=== PATIENT | female | born 1975 | race Caucasian/White ===

== ENCOUNTER 2018-10-06 09:19 | Emergency (ER) | payer SELFPAY ==
[2018-10-06 10:50] LABS: Absolute Lymphocytes (CBC) 1.1 K/uL (0.7-4.9); Basophils % 0.7 % (0-1.3); Eosinophils % 1.1 % (0-4.4); Hematocrit 43.1 % (36.0-45.0); Lymphocytes % 18.6 % (15.3-44.8); Monocytes % 9.8 % (3.3-12.3); RBC Red Blood Cell Count 5.15 M/uL (3.86-4.86)
[2018-10-06 10:56] LABS: Albumin 3.8 g/dL (3.4-5.0); Bilirubin Direct 0.1 mg/dL (0-0.2); Bilirubin Total 0.3 mg/dL (0.2-1.0); Potassium 3.2 mmol/L (3.5-5.1); Protein, Total 7.8 g/dL (6.4-8.2)
[2018-10-06 11:03] LABS: Urine Blood TRACE (NEG); Urine Glucose NEGATIVE (NEG); Urine Protein 1+ (NEG); Urine Specific Gravity 1.025 (1.005-1.030)
--- NOTE | 2018-10-06 11:57 | RAD REPORT ---
EXAM DESCRIPTION: US - Abdomen Exam Limited - 10/06/2018 10:56 am CLINICAL HISTORY: Upper abdominal pain COMPARISON: None. FINDINGS: No gallstones, sludge or other abnormalities within the gallbladder lumen. There is no wal l thickening or pericholecystic fluid. No common duct stone or biliary tree dilatation identified. IMPRESSION: Normal gallbladder and biliary tree ultrasound.
--- NOTE | 2018-10-06 12:38 | RAD REPORT ---
EXAM DESCRIPTION: CT - Abdomen Pelvis W Contrast - 10/06/2018 12:22 pm CLINICAL HISTORY: Abdominal pain/diarrhea. COMPARISON: none. TECHNIQUE: Computed axial tomography of the abdomen pelvis was obtained. 100 cc Isovue-300 was admin istered intravenously. Oral contrast was not requested which limits evaluation of bowel. All CT scans are performed using dose optimization technique as appropriate and may include automated exposure control or mA/KV adjustment according to patient size. FINDINGS: The liver, spleen, pancreas, and adrenals appear unremarkable. Tiny nonobstructing right renal calculus There is no evidence of diverticulitis. 4.2 centimeter complex cystic left ovarian mass Small umbilical hernia. Fluid within nondilated bowel IMPRESSION: 4.2 centimeter complex cystic left ovarian mass. Ultrasound recommended Tiny nonobstructing right renal calculus
--- NOTE | 2018-10-06 14:06 | RAD REPORT ---
EXAM DESCRIPTION: US - Transvaginal Study Probe - 10/06/2018 1:51 pm CLINICAL HISTORY: Pelvic pain, abnormal CT study COMPARISON: CT study October 06 TECHNIQUE: Endovaginal sonography was performed. FINDINGS: Nabothian cysts are present in the cervix. Uterus is 9.1 x 5.0 x 5.7 cm. No myometrial mas s. Endometrial stripe is 9 mm. No suspicious endometrial mass or polyp identifiable. Endometrium - my ometrium interface is preserved. Right ovary measures 2.8 x 1.4 x 1.7 cm. No ovarian or adnexal mass. Doppler evaluation shows normal blood flow in the right ovarian stroma. Left ovary measures 3.9 x 3.5 x 2.7 cm. Multiple clustered cysts of the left ovary are present. Colle ctively these multiple cysts makeup the cystic mass seen on CT imaging. One of the cysts has some low -level internal echoes. Doppler evaluation shows normal blood flow in the left ovarian stroma. Cyst m easures up to 13 mm in maximum dimension. No suspicious characteristics. The low-level internal echog enicity on 1 of the cysts is not likely of any long-term significance. No blood or fluid in the cul de sac. IMPRESSION: The left ovary contains multiple clustered cysts largest at 13 mm. The collection of lef t ovarian cysts makeup the dominant complex mass seen on CT imaging. One of the cysts has low-level internal echogenicity. Overall the cysts are not regarded as suspiciou s. Uterus and right ovary show no suspicious findings.
--- NOTE | 2018-10-06 14:17 | ER ---
Nurse's Notes [facility] Name: Natalia Giang Age: 42 yrs Sex: Female : 1975 Arrival Date: 10/06/2018 Time: 09:22 Bed 17 Private MD: Diagnosis: Diarrhea, unspecified;Unspecified abdominal pain;Unspecified ovarian cysts-left ovary Presentation: 10/06 09:39 Presenting complaint: Patient states: 2 Mondays ago she had fever, chills, nausea, iw diarrhea, fatigue, symptoms started after she ate some yang, all symptoms have resolved except the diarrhea, nausea, fatigue, pt states she is having more than 10 episodes of diarrhea per day, denies vomiting, c/o upper abd bloating and pain when she feels a BM come on, denies pain at this time. Transition of care: patient was not received from another setting of care. Onset of symptoms was September 23, 2018. Risk Assessment: Do you want to hurt yourself or someone else? Patient reports no desire to harm self or others. Initial Sepsis Screen: Does the patient meet any 2 criteria? No. Patient's initial sepsis screen is negative. Does the patient have a suspected source of infection? No. Patient's initial sepsis screen is negative. Care prior to arrival: None. 09:39 Method Of Arrival: Ambulatory iw 09:39 Acuity: JANICE 3 iw Triage Assessment: 09:44 General: Appears in no apparent distress. Pain: Denies pain. EENT: No signs and/or wh symptoms were reported regarding the EENT system. Neuro: Level of Consciousness is awake, alert, obeys commands, Oriented to person, place, time, situation. Cardiovascular: Heart tones S1 S2. Respiratory: Airway is patent Respiratory effort is even, unlabored, Respiratory pattern is regular, symmetrical, Breath sounds are clear bilaterally. GI: Abdomen is flat, non-distended, Bowel sounds present X 4 quads. Abd is soft and non tender X 4 quads. Reports bloating, diarrhea, nausea, vomiting, since 2 mondays ago. : No signs and/or symptoms were reported regarding the genitourinary system. Derm: Skin is intact, is healthy with good turgor, Skin is pink, warm \T\ dry. normal. Musculoskeletal: Range of motion: intact in all extremities. 09:46 General: Behavior is calm, cooperative, appropriate for age. 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 - Social history:: Smoking status: Patient/guardian denies using tobacco. - Ebola Screening: : Patient negative for fever greater than or equal to 101.5 degrees Fahrenheit, and additional compatible Ebola Virus Disease symptoms Patient denies exposure to infectious person Patient denies travel to an Ebola-affected area in the 21 days before illness onset No symptoms or risks identified at this time. Screenin:44 Abuse screen: Denies threats or abuse. Denies injuries from another. Nutritional screening: No deficits noted. Tuberculosis screening: No symptoms or risk factors identified. Fall Risk None identified. Assessment: 10:31 Reassessment: See triage assessment. 10:32 Reassessment: Pt left for Radiology for Abd ultrasound. 11:24 Reassessment: Patient appears in no apparent distress at this time. Patient and/or family updated on plan of care and expected duration. Pain level reassessed. Patient is alert, oriented x 3, equal unlabored respirations, skin warm/dry/pink. Patient denies pain at this time. GI: Abdomen is flat, non-distended, Bowel sounds present X 4 quads. Abd is soft and non tender X 4 quads. 12:27 Reassessment: Patient appears in no apparent distress at this time. Patient and/or family updated on plan of care and expected duration. Pain level reassessed. Patient is alert, oriented x 3, equal unlabored respirations, skin warm/dry/pink. 13:31 Reassessment: Patient appears in no apparent distress at this time. Patient and/or family updated on plan of care and expected duration. Pain level reassessed. Patient is alert, oriented x 3, equal unlabored respirations, skin warm/dry/pink. Patient denies pain at this time. Pt was taken to imaging for Transvaginal Sahra. Vital Signs: 09:43 BP 145 / 91; Pulse 94; Resp 16 S; Temp 98.3(O); Pulse Ox 98% on R/A; Weight 119.75 kg; iw Height 5 ft. 5 in. (165.10 cm); Pain 0/10; 10:36 BP 118 / 87; Pulse 87; Resp 17; Pulse Ox 98% on R/A; mh5 11:22 BP 99 / 68; Pulse 82; Resp 18; Temp 98.1(O); Pulse Ox 98% ; mh5 12:21 BP 105 / 65; Pulse 75; Resp 17; Temp 98.1(O); Pulse Ox 99% on R/A; mh5 13:55 BP 125 / 89; Pulse 84; Resp 17; Temp 98.2(O); Pulse Ox 98% on R/A; mh5 09:43 Body Mass Index 43.93 (119.75 kg, 165.10 cm) ED Course: 09:22 Patient arrived in ED. mr 09:38 Wendy Tom RN is Primary Nurse. hb 09:38 Primary Nurse role handed off by Wendy Tom RN wh 09:38 Anamika Temple is Primary Nurse. wh 09:42 Triage completed. iw 09:42 Patient has correct armband on for positive identification. Placed in gown. Bed in low mh5 position. Call light in reach. Warm blanket given. Pulse ox on. NIBP on. 09:43 Arm band placed on. iw 09:49 Ean Wynn PA is PHCP. cp 09:49 Reno Burden MD is Attending Physician. cp 10:31 Inserted saline lock: 22 gauge in right antecubital area, using aseptic technique. Blood collected. 10:58 US Abdomen Limited In Process Unspecified. EDMS 12:24 CT Abd/Pelvis - IV Contrast Only In Process Unspecified. EDMS 13:56 US Transvaginal Study (Probe) In Process Unspecified. EDMS 14:15 Kain Keller MD is Referral Physician. cp 14:24 STOOL COLLECTED. 5 14:26 Stool Culture Sent. 5 14:[address] [facility] 14:31 No provider procedures requiring assistance completed. IV discontinued, intact, wh bleeding controlled, No redness/swelling at site. Administered Medications: No medications were administered Outcome: 14:16 Discharge ordered by . cp 14:31 Discharged to home ambulatory. 14:31 Condition: good 14:31 Discharge instructions given to patient, family, Instructed on discharge instructions, follow up and referral plans. medication usage, POC Diarrhea and Abd Pain Demonstrated understanding of instructions, follow-up care, medications, POC Prescriptions given X 2. 14:34 Patient left the ED. Signatures: Dispatcher [employer] MCKENNADC Hortensia Miguel Rachel Rashid RN RN iw Page, Corey, PA PA cp Baxter, Heather, RN RN hb Martinez, Maria [facility] Anamika Temple
--- NOTE | 2018-10-06 14:18 | EDPHYS ---
Physician Documentation [facility] Name: Natalia Giang Age: 42 yrs Sex: Female : 1975 Arrival Date: 10/06/2018 Time: 09:22 Bed 17 Private MD: ED Physician Reno Burden HPI: 10/06 10:10 This 42 yrs old Female presents to ER via Ambulatory with complaints of Flu cp Symptoms, Vomiting/Diarrhea. 10:10 The patient presents with abdominal pain in the upper abdomen. cp 10:10 Onset: The symptoms/episode began/occurred 2 week(s) ago. Associated signs and cp symptoms: Pertinent positives: anorexia, intermittent nausea and diarrhea times 10 days, Pertinent negatives: blood in stools, chest pain, constipation, dysuria, fever, vomiting. Modifying factors: the symptoms are aggravated by food. Severity of pain: in the emergency department the pain has resolved. 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 - Social history:: Smoking status: Patient/guardian denies using tobacco. - Ebola Screening: : Patient negative for fever greater than or equal to 101.5 degrees Fahrenheit, and additional compatible Ebola Virus Disease symptoms Patient denies exposure to infectious person Patient denies travel to an Ebola-affected area in the 21 days before illness onset No symptoms or risks identified at this time. ROS: 10:20 Constitutional: Negative for body aches, chills, fever, poor PO intake. cp 10:20 Eyes: Negative for injury, pain, redness, and discharge. cp 10:20 ENT: Negative for drainage from ear(s), ear pain, sore throat, difficulty swallowing, difficulty handling secretions. 10:20 Cardiovascular: Negative for chest pain, edema, palpitations. 10:20 Respiratory: Negative for cough, shortness of breath, wheezing. 10:20 Abdomen/GI: Positive for abdominal pain, nausea, diarrhea, Negative for vomiting, constipation, anorexia, black/tarry stool, rectal bleeding. 10:20 Back: Negative for pain at rest, pain with movement, radiated pain. 10:20 : Negative for urinary symptoms, vaginal bleeding. 10:20 Skin: Negative for cellulitis, rash. 10:20 Neuro: Negative for altered mental status, headache, weakness. 10:20 All other systems are negative. Exam: 10:25 Constitutional: The patient appears in no acute distress, alert, awake, non-toxic, well cp developed, well nourished. 10:25 Head/Face: Normocephalic, atraumatic. cp 10:25 Eyes: Periorbital structures: appear normal, Conjunctiva: normal, no exudate, no injection, Sclera: no appreciated abnormality, Lids and lashes: appear normal, bilaterally. 10:25 ENT: External ear(s): are unremarkable, Nose: is normal, Mouth: Lips: moist, Oral mucosa: pink and intact, moist, Posterior pharynx: is normal, airway is patent, no erythema, no exudate. 10:25 Chest/axilla: Inspection: normal, Palpation: is normal, no crepitus, no tenderness. 10:25 Cardiovascular: Rate: normal, Rhythm: regular. 10:25 Respiratory: the patient does not display signs of respiratory distress, Respirations: normal, no use of accessory muscles, no retractions, no splinting, no tachypnea, labored breathing, is not present, Breath sounds: are clear throughout, no decreased breath sounds, no stridor, no wheezing. 10:25 Abdomen/GI: Inspection: abdomen appears normal, Bowel sounds: active, all quadrants, Palpation: soft, in all quadrants, mild abdominal tenderness, in the right upper quadrant and left upper quadrant, rebound tenderness, is not appreciated, voluntary guarding, is not appreciated, involuntary guarding, is not appreciated. 10:25 Back: pain, is absent, ROM is normal. 10:25 Neuro: Orientation: to person, place \T\ time. Mentation: is normal, Cerebellar function: is grossly normal, Motor: moves all fours, strength is normal, Sensation: is normal. Vital Signs: 09:43 BP 145 / 91; Pulse 94; Resp 16 S; Temp 98.3(O); Pulse Ox 98% on R/A; Weight 119.75 kg; iw Height 5 ft. 5 in. (165.10 cm); Pain 0/10; 10:36 BP 118 / 87; Pulse 87; Resp 17; Pulse Ox 98% on R/A; mh5 11:22 BP 99 / 68; Pulse 82; Resp 18; Temp 98.1(O); Pulse Ox 98% ; mh5 12:21 BP 105 / 65; Pulse 75; Resp 17; Temp 98.1(O); Pulse Ox 99% on R/A; mh5 13:55 BP 125 / 89; Pulse 84; Resp 17; Temp 98.2(O); Pulse Ox 98% on R/A; mh5 09:43 Body Mass Index 43.93 (119.75 kg, 165.10 cm) iw MDM: 09:52 Patient medically screened. cp 11:00 Differential diagnosis: cholecystitis, Cholelithiasis, diverticulitis, pancreatitis, cp Pyelonephritis, Ureterolithiasis, urinary tract infection. 14:15 Data reviewed: vital signs, nurses notes, lab test result(s), radiologic studies, CT cp scan, plain films. 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 Response to treatment: the patient's symptoms have mildly improved after treatment, and as a result, I will discharge patient. 10/06 10:05 Order name: Urine Dipstick--Ancillary (enter results); Complete Time: 11:30 10/06 11:30 Interpretation: Normal except: UBLD TRACE; UPROT 1+. 10/06 10:05 Order name: Urine --Ancillary (enter results); Complete Time: 11:30 10/06 10:09 Order name: Basic Metabolic Panel 10/06 10:09 Order name: CBC with Diff; Complete Time: 11:30 10/06 11:30 Interpretation: Normal except: RBC 5.15. 10/06 10:09 Order name: Creatinine for Radiology; Complete Time: 11:30 10/06 10:09 Order name: Hepatic Function; Complete Time: 11:30 10/06 10:09 Order name: Lipase; Complete Time: 11:30 cp 10/06 10:09 Order name: IV Saline Lock; Complete Time: 10:30 cp 10/06 10:09 Order name: US Abdomen Limited; Complete Time: 12:39 cp 10/06 10:10 Order name: Basic Metabolic Panel; Complete Time: 11:30 EDMS 10/06 11:30 Interpretation: Normal except: K 3.2; CL 110; GFR 73. 10/06 11:53 Order name: CT Abd/Pelvis - IV Contrast Only; Complete Time: 12:39 cp 10/06 13:00 Order name: US Transvaginal Study (Probe); Complete Time: 14:13 cp 10/06 13:00 Order name: Stool Culture 10/06 13:00 Order name: CDIFF 10/06 10:09 Order name: Labs collected and sent; Complete Time: 10:30 10/06 10:09 Order name: NPO; Complete Time: 10:30 cp Administered Medications: No medications were administered Disposition: 10/06/18 14:16 Discharged to Home. Impression: Diarrhea, unspecified, Unspecified abdominal pain, Unspecified ovarian cysts - left ovary. - Condition is Stable. - Discharge Instructions: Abdominal Pain, Adult, Food Choices to Help Relieve Diarrhea, Adult, Diarrhea, Adult, Ovarian Cyst. - Prescriptions for Zofran 4 mg Oral Tablet - take 1 tablet by ORAL route every 12 hours As needed; 20 tablet. Lomotil 2.5- 0.025 mg Oral Tablet - take 1 tablet by ORAL route every 6 hours As needed; 20 tablet. - Medication Reconciliation Form, Thank You Letter, Antibiotic Education, Prescription Opioid Use form. - Follow up: Private Physician; When: 7 - 10 days; Reason: left ovarian cysts. Follow up: Kain Keller MD; When: 2 - 3 days; Reason: diarrhea. - Problem is new. - Symptoms have improved. Addendum: 10/07/2018 17:04 Co-signature as Attending Physician, Reno Burden MD. g s Signatures: Dispatcher [employer] EDRachel Smith RN RN Ean Peters PA PA Anamika Bentley Reno Burden MD MD gs Corrections: (The following items were deleted from the chart) 10/06 14:17 14:16 10/06/2018 14:16 Discharged to Home. Impression: Diarrhea, unspecified; cp Unspecified abdominal pain; Unspecified ovarian cysts - left. Condition is Stable. Forms are Medication Reconciliation Form, Thank You Letter, Antibiotic Education, Prescription Opioid Use. Follow up: Private Physician; When: 7 - 10 days; Reason: left ovarian cysts. Follow up: Kain Keller; When: 2 - 3 days; Reason: diarrhea. Problem is new. Symptoms have improved. cp 14:34 14:17 10/06/2018 14:16 Discharged to Home. Impression: Diarrhea, unspecified; wh Unspecified abdominal pain; Unspecified ovarian cysts - left ovary. Condition is Stable. Discharge Instructions: Abdominal Pain, Adult, Food Choices to Help Relieve Diarrhea, Adult, Diarrhea, Adult, Ovarian Cyst. Prescriptions for Zofran 4 mg Oral Tablet - take 1 tablet by ORAL route every 12 hours As needed; 20 tablet, Lomotil 2.5-0.025 mg Oral Tablet - take 1 tablet by ORAL route every 6 hours As needed; 20 tablet. and Forms are Medication Reconciliation Form, Thank You Letter, Antibiotic Education, Prescription Opioid Use. Follow up: Private Physician; When: 7 - 10 days; Reason: left ovarian cysts. Follow up: Kain Keller; When: 2 - 3 days; Reason: diarrhea. Problem is new. Symptoms have improved. cp
== END 2018-10-06 14:34 | disposition home or self-care (01) ==
LOC: ER 09:19
DX: R19.7 Diarrhea, unspecified (principal); N83.202 Unspecified ovarian cyst, left side
CPT/HCPCS: 36415; 74177; 76705; 76830; 80048; 80076; 81003; 81025; 83690; 85025; 87045; 87046; 87493; 99284; Q9967

== ENCOUNTER 2018-11-09 19:58 | Emergency (ER) | payer SELFPAY ==
[2018-11-09 20:50] LABS: Urine Blood 1+ (NEG); Urine Glucose NEGATIVE (NEG); Urine Protein NEGATIVE (NEG); Urine Specific Gravity 1.025 (1.005-1.030); Urine pH 6.5 (5.0-7.0)
[2018-11-09 20:51] LABS: Absolute Lymphocytes (CBC) 1.2 K/uL (0.7-4.9); Basophils % 0.7 % (0-1.3); Hematocrit 36.5 % (36.0-45.0); Lymphocytes % 11.8 % (15.3-44.8)
[2018-11-09] MEDS ORDERED: ONDANSETRON 4 MG/2 ML VIAL ONE (20:56)
[2018-11-09] MEDS ORDERED: MORPHINE 4 MG/ML SYR ONE (20:56)
[2018-11-09 21:03] LABS: Potassium 3.7 mmol/L (3.5-5.1)
--- NOTE | 2018-11-09 22:43 | EDPHYS ---
Physician Documentation [facility] Name: Natalia Giang Age: 42 yrs Sex: Female : 1975 Arrival Date: 11/09/2018 Time: 20:00 Bed 27 Private MD: ED Physician Ean Todd HPI: 11/09 21:44 This 42 yrs old Female presents to ER via Ambulatory with complaints of kb Abdominal Pain. 21:44 The patient presents with abdominal pain in the right upper quadrant, right lower kb quadrant. Onset: The symptoms/episode began/occurred today. The symptoms do not radiate. Associated signs and symptoms: none. The symptoms are described as constant. Modifying factors: The symptoms are alleviated by nothing, the symptoms are aggravated by nothing. Severity of pain: At its worst the pain was moderate in the emergency department the pain is unchanged. The patient has not experienced similar symptoms in the past. The patient has not recently seen a physician. 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 - Social history:: Smoking status: Patient/guardian denies using tobacco. - Ebola Screening: : Patient denies travel to an Ebola-affected area in the 21 days before illness onset. ROS: 21:44 Constitutional: Negative for fever, chills, and weight loss, ENT: Negative for injury, kb pain, and discharge, Neck: Negative for injury, pain, and swelling, Cardiovascular: Negative for chest pain, palpitations, and edema, Respiratory: Negative for shortness of breath, cough, wheezing, and pleuritic chest pain, Back: Negative for injury and pain, : Negative for injury, bleeding, discharge, and swelling, MS/Extremity: Negative for injury and deformity, Skin: Negative for injury, rash, and discoloration, Neuro: Negative for headache, weakness, numbness, tingling, and seizure. 21:44 Abdomen/GI: Positive for abdominal pain, nausea. Exam: 21:43 Constitutional: This is a well developed, well nourished patient who is awake, alert, kb and in no acute distress. Head/Face: Normocephalic, atraumatic. Neck: Trachea midline, no thyromegaly or masses palpated, and no cervical lymphadenopathy. Supple, full range of motion without nuchal rigidity, or vertebral point tenderness. No Meningismus. Chest/axilla: Normal chest wall appearance and motion. Nontender with no deformity. No lesions are appreciated. Cardiovascular: Regular rate and rhythm with a normal S1 and S2. No gallops, murmurs, or rubs. Normal PMI, no JVD. No pulse deficits. Respiratory: Lungs have equal breath sounds bilaterally, clear to auscultation and percussion. No rales, rhonchi or wheezes noted. No increased work of breathing, no retractions or nasal flaring. Back: No spinal tenderness. No costovertebral tenderness. Full range of motion. Skin: Warm, dry with normal turgor. Normal color with no rashes, no lesions, and no evidence of cellulitis. MS/ Extremity: Pulses equal, no cyanosis. Neurovascular intact. Full, normal range of motion. Neuro: Awake and alert, GCS 15, oriented to person, place, time, and situation. Cranial nerves II-XII grossly intact. Motor strength 5/5 in all extremities. Sensory grossly intact. Cerebellar exam normal. Normal gait. 21:43 Abdomen/GI: Inspection: obese Bowel sounds: normal, in all quadrants, Palpation: soft, in all quadrants, mild abdominal tenderness, in the right upper quadrant and right lower quadrant. Vital Signs: 20:04 BP 148 / 98; Pulse 79; Resp 18; Temp 97.2; Pulse Ox 100% on R/A; Weight 117.93 kg (R); aj1 Height 5 ft. 5 in. (165.10 cm) (R); Pain 6/10; 22:50 BP 107 / 72; Pulse 78; Resp 17; Pulse Ox 100% on R/A; rv 23:44 BP 112 / 73; Pulse 74; Resp 17; Temp 98; Pulse Ox 99% ; rv 20:04 Body Mass Index 43.27 (117.93 kg, 165.10 cm) aj1 MDM: 20:17 Patient medically screened. kb 21:43 Data reviewed: vital signs, nurses notes. Data interpreted: Pulse oximetry: on room air kb is 100 %. Interpretation: normal. 22:34 Counseling: I had a detailed discussion with the patient and/or guardian regarding: the kb historical points, exam findings, and any diagnostic results supporting the discharge/admit diagnosis, lab results, radiology results, the need for outpatient follow up, a urologist, to return to the emergency department if symptoms worsen or persist or if there are any questions or concerns that arise at home. 11/09 20:26 Order name: Basic Metabolic Panel; Complete Time: 21:08 kb 11/09 20:26 Order name: CBC with Diff; Complete Time: 21:08 11/09 20:26 Order name: CT Abd/Pelvis - IV Contrast Only 11/09 20:44 Order name: Urine Dipstick--Ancillary (enter results) [facility] 11/09 20:44 Order name: Urine --Ancillary (enter results) [facility] 11/09 20:26 Order name: IV Saline Lock; Complete Time: 21:01 kb 11/09 20:26 Order name: Labs collected and sent; Complete Time: 21: 11/09 20:26 Order name: Urine Dipstick-Ancillary (obtain specimen); Complete Time: 21:15 kb Administered Medications: 20:57 Not Given (Patient Refused): Zofran 4 mg IVP once; over 2 minutes mg2 20:57 Not Given (Patient Refused): morphine 4 mg IVP once mg2 22:37 Drug: Flomax 0.4 mg Route: PO; rv 23:44 Follow up: Response: No adverse reaction rv 22:38 Drug: Magnesium Sulfate 1 grams Route: IVPB; Infused Over: 1 hrs; Site: right rv antecubital; 23:43 Follow up: IV Status: Completed infusion rv Disposition: 11/10 07:21 Co-signature as Attending Physician, Ean Todd MD I agree with the assessment and micha plan of care. Disposition: 11/09/18 22:35 Discharged to Home. Impression: Calculus of kidney and ureter. - Condition is Stable. - Discharge Instructions: Kidney Stones, [id number], Dietary Guidelines to Help Prevent Kidney Stones. - Prescriptions for Zofran 4 mg Oral Tablet - take 1 tablet by ORAL route every 6 hours As needed; 20 tablet. Flomax 0.4 mg Oral Capsule, Sust. Release 24 hr - take 1 capsule by ORAL route once daily 1/2 hour following the same meal each day; 10 capsule. Diclofenac Sodium 75 mg Oral Tablet, Delayed Release (E.C.) - take 1 tablet by ORAL route 2 times per day As needed; 30 tablet. Macrobid 100 mg Oral Capsule - take 1 capsule by ORAL route every 12 hours for 7 days; 14 capsule. - Medication Reconciliation Form, Thank You Letter, Antibiotic Education, Prescription Opioid Use form. - Follow up: Emergency Department; When: As needed; Reason: Worsening of condition. Follow up: Private Physician; When: 2 - 3 days; Reason: Recheck today's complaints, Continuance of care, Re-evaluation by your physician. Signatures: Dispatcher [employer] EDMS Aubree Meng, HYDRAULIC JACK OPERATOR-C HYDRAULIC JACK OPERATOR-Giselle Reyes RN RN aj1 Ean Todd MD MD cha Vicente, Ronaldo, RN RN rv Gardose, Michele RN mg2 Corrections: (The following items were deleted from the chart) 11/09 23:45 22:35 11/09/2018 22:35 Discharged to Home. Impression: Calculus of kidney and ureter. rv Condition is Stable. Forms are Medication Reconciliation Form, Thank You Letter, Antibiotic Education, Prescription Opioid Use. Follow up: Emergency Department; When: As needed; Reason: Worsening of condition. Follow up: Private Physician; When: 2 - 3 days; Reason: Recheck today's complaints, Continuance of care, Re-evaluation by your physician. kb
--- NOTE | 2018-11-09 22:43 | ER ---
Nurse's Notes [facility] Name: Natalia Giang Age: 42 yrs Sex: Female : 1975 Arrival Date: 11/09/2018 Time: 20:00 Bed 27 Private MD: Diagnosis: Calculus of kidney and ureter Presentation: 11/09 20:02 Presenting complaint: Patient states: "A sharp pain started around my belly bottom, and aj1 now is moved to the middle of the right side" Reports her pain started at 1400 today. Reports nausea. Denies V/D. Denies fever. Transition of care: patient was not received from another setting of care. Onset of symptoms was November 09, 2018 at 14:00. Risk Assessment: Do you want to hurt yourself or someone else? Patient reports no desire to harm self or others. Initial Sepsis Screen: Does the patient meet any 2 criteria? No. Patient's initial sepsis screen is negative. Does the patient have a suspected source of infection? No. Patient's initial sepsis screen is negative. Care prior to arrival: None. 20:02 Method Of Arrival: Ambulatory aj 20:02 Acuity: JANICE 3 aj1 Triage Assessment: 20:04 General: Appears in no apparent distress. uncomfortable, Behavior is calm, cooperative, aj1 appropriate for age. Pain: Complains of pain in right mid abdomen Pain currently is 6 out of 10 on a pain scale. Neuro: Level of Consciousness is awake, alert, obeys commands, Oriented to person, place, time, situation. Cardiovascular: Patient's skin is warm and dry. Respiratory: Airway is patent Respiratory effort is even, unlabored, Respiratory pattern is regular, symmetrical. GI: Reports nausea, Patient currently denies diarrhea, vomiting. 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 - Social history:: Smoking status: Patient/guardian denies using tobacco. - Ebola Screening: : Patient denies travel to an Ebola-affected area in the 21 days before illness onset. Screenin:42 Abuse screen: Denies threats or abuse. Denies injuries from another. Nutritional rv screening: No deficits noted. Tuberculosis screening: No symptoms or risk factors identified. Fall Risk None identified. Assessment: 20:41 General: Appears in no apparent distress. comfortable, Behavior is calm, cooperative. rv Pain: Complains of pain in abdomen. Neuro: Level of Consciousness is awake, alert, obeys commands, Oriented to person, place, time, situation. Cardiovascular: Patient's skin is warm and dry. Respiratory: Airway is patent. GI: Bowel sounds present X 4 quads. Abd is soft and non tender X 4 quads. : No signs and/or symptoms were reported regarding the genitourinary system. EENT: No signs and/or symptoms were reported regarding the EENT system. Derm: No signs and/or symptoms reported regarding the dermatologic system. Derm: Skin is intact. 22:53 Reassessment: Patient appears in no apparent distress at this time. Patient and/or rv family updated on plan of care and expected duration. Pain level reassessed. Patient is alert, oriented x 3, equal unlabored respirations, skin warm/dry/pink. Aubree went to the room and explained the blood results and radiology report to the patient and family. Patient states feeling better. Patient states symptoms have improved. Vital Signs: 20:04 BP 148 / 98; Pulse 79; Resp 18; Temp 97.2; Pulse Ox 100% on R/A; Weight 117.93 kg (R); aj1 Height 5 ft. 5 in. (165.10 cm) (R); Pain 6/10; 22:50 BP 107 / 72; Pulse 78; Resp 17; Pulse Ox 100% on R/A; rv 23:44 BP 112 / 73; Pulse 74; Resp 17; Temp 98; Pulse Ox 99% ; rv 20:04 Body Mass Index 43.27 (117.93 kg, 165.10 cm) aj1 ED Course: 20:00 Patient arrived in ED. ag3 20:04 Triage completed. aj1 20:04 Arm band placed on Patient placed in waiting room, Patient notified of wait time. aj1 20:17 [facility]-C [facility]. kb 20:17 Ean Todd MD is Attending Physician. kb 20:25 Harvey Falcon, RN is Primary Nurse. rv 20:28 Radiology exam delayed due to lab results not completed at this time. (BUN/Creatinine). vm2 20:42 Patient has correct armband on for positive identification. Bed in low position. Call rv light in reach. Side rails up X 1. Adult w/ patient. Pulse ox on. NIBP on. 20:42 Inserted saline lock: 18 gauge in right antecubital area, using aseptic technique. rv Blood collected. 21:22 CT completed. Patient tolerated procedure well. Patient moved to CT via wheelchair. ut Patient moved back from CT. 21:36 CT Abd/Pelvis - IV Contrast Only In Process Unspecified. EDMS 23:44 No provider procedures requiring assistance completed. IV discontinued, intact, rv bleeding controlled, No redness/swelling at site. Pressure dressing applied. Administered Medications: 20:57 Not Given (Patient Refused): Zofran 4 mg IVP once; over 2 minutes mg2 20:57 Not Given (Patient Refused): morphine 4 mg IVP once mg2 22:37 Drug: Flomax 0.4 mg Route: PO; rv 23:44 Follow up: Response: No adverse reaction rv 22:38 Drug: Magnesium Sulfate 1 grams Route: IVPB; Infused Over: 1 hrs; Site: right rv antecubital; 23:43 Follow up: IV Status: Completed infusion rv Outcome: 22:35 Discharge ordered by . kb 23:44 Discharged to home ambulatory, with family. rv 23:44 Condition: improved 23:44 Discharge instructions given to patient, Instructed on discharge instructions, follow up and referral plans. medication usage, Demonstrated understanding of instructions, follow-up care, medications, Prescriptions given X 4. 23:45 Patient left the ED. rv Signatures: Dispatcher [employer] EDMS Aubree Meng, ROENTGENOLOGY TEACHER-C ROENTGENOLOGY TEACHER-Ckb Giselle Segovia, RN RN Moi Lopez Victoria 2 Harvey Falcon, RN RN Nelly Goyal Balwinder Peace RN mg2
[2018-11-09] MEDS ORDERED: TAMSULOSIN 0.4 MG SR CAP ONE (22:49)
[2018-11-09] MEDS ORDERED: MAGNESIUM SULFATE 1 gm IVPB 1 GM/100 ML BAG IV ONE (22:50)
--- NOTE | 2018-11-10 10:27 | RAD REPORT ---
EXAM DESCRIPTION: CT - Abdomen Pelvis W Contrast - 11/10/2018 5:53 am CLINICAL HISTORY: The patient is 44 years old and is Female; ABD PAIN TECHNIQUE: Axial computed tomography images of the abdomen and pelvis with intravenous contrast. S agittal and coronal reformatted images were created and reviewed. This CT exam was performed using one or more of the following dose reduction techniques: automated exposure control, adjustment of t he mA and/or kV according to patient size, and/or use of iterative reconstruction technique. COMPARISON: No relevant prior studies available. FINDINGS: ARTIFACTS: The exam is suboptimal secondary to motion artifact. LUNG BASES: Unremarkable. No mass. No consolidation. ABDOMEN: LIVER: Unremarkable. No mass. GALLBLADDER AND BILE DUCTS: No calcified stones. No ductal dilation. PANCREAS: No ductal dilation. No mass. SPLEEN: Unremarkable. ADRENALS: Unremarkable. No mass. KIDNEYS AND URETERS: Unremarkable. No solid mass. No hydronephrosis. STOMACH AND BOWEL: The stomach is distended with oral contrast and food contents. Oral contrast is present throughout small bowel which is normal in caliber. Oral contrast and stool are noted throu ghout majority the colon. There is no mucosal thickening or evidence of bowel obstruction. PELVIS: APPENDIX: The appendix is normal in caliber without surrounding inflammation. BLADDER: The bladder is well distended. REPRODUCTIVE: A 2.5 cm left ovarian cyst is present. No follow-up imaging is recommended. The ut erus and right ovary are normal. ABDOMEN and PELVIS: INTRAPERITONEAL SPACE: Unremarkable. No free air. No significant fluid collection. BONES/JOINTS: No acute fracture. SOFT TISSUES: The soft tissues are normal. VASCULATURE: Unremarkable. No abdominal aortic aneurysm. LYMPH NODES: Unremarkable. No enlarged lymph nodes. IMPRESSION: No acute findings on this contrasted CT of the abdomen and pelvis to explain the patient 's symptoms. Electronically signed by: Mounika Lemus MD 11/10/2018 5:43 AM CDT Due to temporary technical issues with the PACS/Fluency reporting system, reports are being signed by the in house radiologist as a courtesy to ensure prompt reporting. The interpreting radiologist is f ully responsible for the content of the report.
== END 2018-11-09 23:45 | disposition home or self-care (01) ==
LOC: ER 19:58
DX: N20.2 Calculus of kidney with calculus of ureter (principal)
CPT/HCPCS: 36415; 74177; 80048; 81003; 81025; 85025; J2405; J3475; Q9967